=== PATIENT | female | born 1965 | race Two or more races ===

== ENCOUNTER 2016-10-25 04:51 | Emergency (ER) | payer BC ==
[~2016-10-25] VITALS: Ht 172.7 cm; Wt 59.0 kg
[2016-10-25] MEDS ORDERED: ONDANSETRON HCL/PF 4 MG/2 ML VIAL ONE (05:01)
[2016-10-25] MEDS ORDERED: IV SET PRIMARY 1 EA INFUS.SET MC ONE (05:02)
[2016-10-25] MEDS ORDERED: IV NS 0.9% 1,000 ML ONE (05:02)
[2016-10-25] MEDS: IV NS 0.9% 1,000 ML BAG IV ONE (05:15)
[2016-10-25] MEDS: ONDANSETRON HCL/PF 4 MG/2 ML VIAL IVP ONE (05:16)
[2016-10-25 05:29] LABS: BASOPHILS % (AUTO) 0.4 % (0.0-2.0); CALCIUM, SERUM 8.4 mg/dL (8.5-10.1); CREATININE 0.8 mg/dL (0.6-1.3); DIFF TOTAL % 100 %; EOSINOPHILS # (AUTO) 0.1 /CMM (0.0-0.7); EOSINOPHILS % (AUTO) 1.5 % (0.0-6.0); HEMATOCRIT 39 % (33-45); LYMPHOCYTES # (AUTO) 2.7 /CMM (0.8-4.8); LYMPHOCYTES % (AUTO) 39.3 % (20.0-44.0); MEAN CORPUSCULAR HEMOGLOBIN 30 PG (26.0-33.0); MEAN CORPUSCULAR HGB CONC 34 g/dl (31.0-36.0); MEAN CORPUSCULAR VOLUME 89 fL (82-100); MONOCYTES # (AUTO) 0.4 /CMM (0.1-1.30); NEUTROPHILS # (AUTO) 3.7 /CMM (1.8-8.9); NEUTROPHILS % (AUTO) 53.8 % (43.0-81.0); PLATELET COUNT (AUTO) 195 /CMM (150-450); POTASSIUM 3.2 mmol/L (3.5-5.1); RED BLOOD CELL COUNT(AUTO) 4.33 MIL/uL (4.0-5.2)
[2016-10-25 05:35] LABS: ALBUMIN 3.4 g/dL (3.4-5.0); BILIRUBIN,DIRECT 0.1 mg/dL (0.0-0.2); BILIRUBIN,TOTAL 0.3 mg/dL (0.2-1.0); INDIRECT BILIRUBIN 0.2 mg/dL (0.0-1.1); TOTAL PROTEIN, SERUM 6.4 g/dL (6.4-8.2)
[2016-10-25 06:16] LABS: KETONES,URINE NEGATIVE (NEGATIVE); LEUKOCYTE ESTERASE ,URINE NEGATIVE (NEGATIVE)
[2016-10-25 06:22] LABS: ADD UA MICROSCOPIC YES
[2016-10-25 06:27] LABS: ADD URINE CULTURE NO; WBC,URINE 0-2 /HPF (0-3)
[2016-10-25 07:57] VITALS: BP 122/68
== END 2016-10-25 07:58 | disposition home or self-care (01) ==
LOC: ER 06:29
DX: A08.4 Viral intestinal infection, unspecified (principal)
CPT/HCPCS: 36415; 74176; 80048; 80076; 81001; 83690; 85025; 96361; 96374; 99285; A4606; J2405; J7030; Z7610; 81000-TC